=== PATIENT | female | born 1955 | race Caucasian/White ===

== ENCOUNTER 2021-02-25 17:28 | Emergency (ER) | payer OTHER ==
[~2021-02-25 17:28] MED LIST: BACLOFEN10 MG PO; ESOMEPRAZOLE MA40 MG PO; ESTRADIOL2 MG PO; FLUTICASONE-SA1 EAC4 INH; K-DUR20 MEQ PO; LOSARTAN-HCTZ1 EAC2 PO; MONTELUKAST SOD10 MG PO; OLMESARTAN-HCT1 EAC1 PO; PREDNISONE 20MG20 MG PO; PYRIDIUM200 MG PO; SYNTHROID137 MCG PO; TRAMADOL HCL50 MG PO
[2021-02-25 19:47] LABS: INR 0.93 (0.9-1.2); PROTHROMBIN TIME 11.8 SECONDS (11.4-13.6); PTT 24.6 SECONDS (22.2-34.7)
[2021-02-25 20:03] LABS: BASOPHIL 0.7 % (0-2); EOSINOPHIL 2.6 % (0-7); HCT 38.5 % (37.0-47.0); HGB 12.7 g/dl (12.5-16.0); LYMPHOCYTE 38.5 % (15-48); MCH 28.1 pg (25.0-31.0); MCV 85.2 fL (78.0-100.0); MONOCYTE 6.5 % (0-12); MPV 10.6 fL (6.0-9.5); NEUTROPHIL 51.6 % (41-80); NRBC 0; PLT 249 K/uL (150-400); RBC 4.52 M/uL (4.20-5.40); WBC 8.3 K/uL (4.0-10.5)
[2021-02-25 20:14] LABS: ALBUMIN 3.8 g/dL (3.4-5.0); BILIRUBIN - TOTAL 0.2 mg/dL (0.2-1.0); BUN/CREAT RATIO (CALC) 17.4 RATIO; CREATININE 0.86 mg/dL (0.51-0.95); GLOBULIN (CALCULATION) 3.3 g/dL; POTASSIUM 3.8 mmol/L (3.5-5.1); TOTAL PROTEIN 7.1 g/dL (6.4-8.2)
[2021-02-25 20:24] LABS: LACTIC ACID 1.6 mmol/L (0.4-1.9)
[2021-02-25 21:12] LABS: BILIRUBIN NEGATIVE (NEGATIVE); BLOOD NEGATIVE Ery/uL (NEGATIVE); CLARITY CLEAR (CLEAR); COLOR YELLOW (YELLOW); GLUCOSE (U) NORMAL (NORMAL); LEUKOCYTES NEGATIVE Leu/uL (NEGATIVE); NITRITE NEGATIVE (NEGATIVE); PROTEIN NEGATIVE (NEGATIVE); SPECIFIC GRAVITY 1.015 (1.001-1.030); UROBILINOGEN 0.2 mg/dL (0.2-1.0)
== END 2021-02-26 13:35 | disposition home or self-care (01) ==
LOC: FER 17:28
PROVIDERS: Student in an Organized Health Care Education/Training Program
DX: M79.605 Pain in left leg (principal); G89.29 Other chronic pain; R22.42 Localized swelling, mass and lump, left lower limb; I10 Essential (primary) hypertension; J45.909 Unspecified asthma, uncomplicated
CPT/HCPCS: 36415; 70544; 70547; 70551; 80053; 81003; 82553; 83605; 84145; 85025; 85610; 85730; 93971; J1170; J1200; J2060; J2405; J2920; J7030; Q9967